=== PATIENT | male | born 1995 ===

== ENCOUNTER 2022-07-12 15:48 | Emergency (ER) | payer BC ==
[2022-07-12] MEDS ORDERED: Sodium Chloride 0.9% 10 ML Syringe FLUSH PRN (16:13)
[2022-07-12] MEDS ORDERED: Sodium Chloride 0.9% 2.5 ML Syringe FLUSH PRN (16:13)
[2022-07-12 16:32] LABS: EOSINOPHILS ABSOLUTE AUTO 0.1 K/uL (0.0-0.7); EOSINOPHILS PERCENT AUTO 0.3 % (0.0-7.0); HEMATOCRIT 34.4 % (38.0-50.0); HEMOGLOBIN 12.1 g/dL (13.0-17.0); LYMPHOCYTES ABSOLUTE AUTO 1.5 K/uL (0.6-2.4); LYMPHOCYTES PERCENT AUTO 7.2 % (16.0-40.0); MEAN CORPUSCULAR HEMOGLOBIN 28.4 pg (27.0-32.0); MEAN CORPUSCULAR HGB CONC 35.2 g/dL (31.0-37.0); MEAN CORPUSCULAR VOLUME 80.8 fL (80.0-98.0); MONOCYTES ABSOLUTE AUTO 1.3 K/uL (0.0-0.8); MONOCYTES PERCENT AUTO 6.3 % (0.0-15.0); NEUTROPHILS ABSOLUTE AUTO 17.9 K/uL (1.4-5.7); NEUTROPHILS PERCENT AUTO 86.2 % (48.0-80.0); NRBC ABSOLUTE 0 K/uL; PLATELET COUNT,PLT 332 K/uL (150-400); RED BLOOD CELL COUNT 4.26 M/uL (4.50-5.90); WHITE BLOOD CELL COUNT,WBC 20.74 K/uL (4.0-11.0)
[2022-07-12] MEDS ORDERED: Sodium Chloride 0.9% 1,000 ML IV ONE ×3 (16:42→16:44)
[2022-07-12] MEDS ORDERED: VANCOmycin 2 GM/400 ML 2 GM in Premix Bag 1 BAG IV ONE (17:00)
[2022-07-12 17:09] LABS: A/G RATIO 0.7 (0.9-1.6); BILIRUBIN TOTAL 1.4 mg/dL (0.2-1.0); CALCIUM 9.1 mg/dL (8.5-10.1); CARBON DIOXIDE,CO2 25.1 mmol/L (21.0-32.0); CREATININE 0.7 mg/dL (0.8-1.3); EST CRCL DRUG DOSING (CG) 170.9 mL/min; POTASSIUM,K 3.3 mmol/L (3.5-5.1); PROTEIN TOTAL,TP 7.6 g/dL (6.4-8.2)
[2022-07-12 17:10] LABS: LACTIC ACID 1.1 mmol/L (0.4-2.0)
[2022-07-12] MEDS ORDERED: Piperacillin/Tazobactam 4.5 GM in Sodium Chloride 0.9% 100 ML IV ONE (19:31)
[2022-07-12 21:42] LABS: APPEARANCE,URINE CLEAR; BILIRUBIN,URINE NEGATIVE (NEGATIVE); COLOR,URINE YELLOW; GLUCOSE,URINE >=1000 mg/dL (NEGATIVE); KETONES,URINE TRACE mg/dL (NEGATIVE); LEUKOCYTE ESTERASE,URINE NEGATIVE (NEGATIVE); NITRITE,URINE NEGATIVE (NEGATIVE); OCCULT BLOOD,URINE NEGATIVE (NEGATIVE); PROTEIN,URINE NEGATIVE (NEGATIVE)
== END 2022-07-12 22:00 ==
LOC: MW.ED 15:48
DX: E11.621 Type 2 diabetes mellitus with foot ulcer (principal); L97.519 Non-pressure chronic ulcer of other part of right foot with unspecified severity; L03.115 Cellulitis of right lower limb
CPT/HCPCS: 36415; 73620; 80053; 81003; 82009; 83605; 85025; 87040; 96365; 96366; 96367; 99284; J2543; J3370; J3490; J7030; 99285